=== PATIENT | female | born 2000 | race Caucasian/White ===

== ENCOUNTER 2023-09-17 01:53 | Emergency (ER) | payer SELFPAY ==
[2023-09-17 02:00] VITALS: BP 129/73; PULSE 89; RESP 15; TEMP 98.2; BMI 29.9
[2023-09-17] MEDS ORDERED: LIDOCAINE 2.5%/PRILOCAINE 2.5% (5 Gram/TUBE) TP ONE (03:30)
[2023-09-17 03:34] LABS: BASO % 0.1 % (0-2.0); EOS % 0.9 % (0-4.5); HEMATOCRIT 34.3 % (32.4-45.2); HEMOGLOBIN 11.6 GM/dL (10.7-15.3); LYMPH % 15.9 % (8-40); MCH 26.8 pg (25.7-33.7); MCHC 33.8 g/dl (32.0-36.0); MEAN CELL VOLUME 79.5 fl (80-96); MEAN PLT VOLUME 8.6 fl (7.5-11.1); MONO % 6.5 % (3.8-10.2); NEUT % 76.6 % (42.8-82.8); PLATELET COUNT 270 10^3/uL (134-434); RBC 4.32 M/mm3 (3.60-5.2); RDW 13.2 % (11.6-15.6); WHITE BLOOD COUNT 15.9 K/mm3 (4.0-10.0)
[2023-09-17] MEDS: LIDOCAINE 2.5%/PRILOCAINE 2.5% 30 GRAM TUBE TP ONE (03:37)
[2023-09-17] MEDS: ACETAMINOPHEN 1000 MG/100 ML BAG IVPB ONE (03:37)
[2023-09-17] MEDS ORDERED: ACETAMINOPHEN 325 MG TABLET (FP) ONE (03:48)
[2023-09-17] MEDS: ACETAMINOPHEN 325 MG TABLET (FP) PO ONE (03:49)
[2023-09-17 03:50] LABS: POTASSIUM 3.9 mmol/L (3.5-5.1)
[2023-09-17 03:53] LABS: ALBUMIN 3.6 g/dl (3.4-5.0); CALCIUM 9.2 mg/dL (8.5-10.1)
[2023-09-17 03:57] LABS: CREATININE 0.5 mg/dL (0.55-1.3)
[2023-09-17 03:58] LABS: BILIRUBIN,TOTAL 0.5 mg/dL (0.2-1)
[2023-09-17] MEDS ORDERED: SULFAMETHOXAZOLE/TRIMETHOPRIM 800MG/160MG D.S. TABLET ONE (04:44)
[2023-09-17] MEDS: SULFAMETHOXAZOLE/TRIMETHOPRIM 800MG/160MG D.S. TABLET PO ONE (04:45)
== END 2023-09-17 04:49 | disposition home or self-care (01) ==
LOC: JER 01:53
PROC: 0U9LX0Z Drainage of Vestibular Gland with Drainage Device, External Approach (ICD-10-PCS; principal; 2023-09-17)
DX: O34.61 Maternal care for abnormality of vagina, first trimester (principal); N75.0 Cyst of Bartholin's gland; R10.2 Pelvic and perineal pain; O23.591 Infection of other part of genital tract in pregnancy, first trimester; L29.2 Pruritus vulvae; O26.891 Other specified pregnancy related conditions, first trimester; R10.30 Lower abdominal pain, unspecified; O99.891 Other specified diseases and conditions complicating pregnancy; R30.0 Dysuria; R50.9 Fever, unspecified; R51.9 Headache, unspecified; Z3A.12 12 weeks gestation of pregnancy
CPT/HCPCS: 36415; 80053; 84702; 85025; 87491; 87591; 99283-25